=== PATIENT | male | born 1945 | race Caucasian/White ===

== ENCOUNTER 2016-10-16 08:07 | Observation (INO) | payer MEDICARE, OTHER ==
--- NOTE | ~2016-10-16 | OP ---
Record Of Operation [facility] [address] [place] [address] NAME: NKECHI MCKAY : 43 STATUS : DIS Aurelio PAT#: [id number] AGE: 71 ADM/REG DATE : 10/16/16 MR#: [id number] REPORT SERV DATE: 10/18/16 DICTATED BY: RAFA GALEANO DATE: 10/18/16 REPORT STATUS : Draft TRANSCRIBED BY: MODL DATE: 10/18/16 DATE OF PROCEDURE: 10/16/2016 ADDENDUM: Intravenous moderate sedation was used. BN/MODL Rafa Galeano M.D. / [id number] CC: Rosalina Rose M.D.
--- NOTE | ~2016-10-16 | OP ---
Record Of Operation [facility] [address] [place]. [address] NAME: NKECHI VEGA : 43 STATUS : REG REF PAT#: [id number] AGE: 71 ADM/REG DATE : 10/16/16 MR#: [id number] REPORT SERV DATE: 10/16/16 DICTATED BY: RAFA GALEANO DATE: 10/16/16 REPORT STATUS : Draft TRANSCRIBED BY: MODL DATE: 10/16/16 DATE OF PROCEDURE: 10/16/2016 PRIMARY PRODUCER: Rafa Galeano M.D. PROCEDURE PERFORMED: Bilateral renal angiography, angioplasty of the left renal artery with a 6 mm balloon. JUDICIAL ASSISTANT: Rafa Galeano M.D. 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 TECHNIQUE: After informed consent was obtained from Mr. Vega, he was brought to the cardiac catheterization laboratory on the morning of 10/16/2006, in the fasting state. The time-out was performed and correct patient and operative plan were confirmed. The right coronary area was prepped and draped in the usual sterile fashion. Local anesthesia was accomplished using 1% lidocaine. Using modified Seldinger technique and a micropuncture set, a micro sheath was placed in the right femoral artery. Femoral angiogram was performed, which demonstrated good stick in the common femoral artery but heavy calcification and disease just below the access site, thought not suitable for closure. Next, a 5-Chilean sheath was exchanged and a 5-Chilean size 2 catheter was used and bilateral selective renal angiography was performed. At that time, I decided to perform angioplasty of the left renal artery. There was a gradient of approximately 15 mmHg across the origin of the left renal artery stent. The lesion was wired using an exchange Paulino guidewire and the catheter and sheath were withdrawn from the body. A 6-Chilean Garry 2 sheath was then placed in the origin of the left renal artery. The sheath was double flushed and left in place. The patient was heparinized to an ACT of greater than 200. Next, a 6 mm x 20 mm Powerflex balloon was brought to lesion site and inflation was performed to 4 minutes at 12 atmospheres with complete balloon expansion. Followup angiography confirmed good angiographic result. There was no evidence of dissection or distal embolization. The guidewire was removed and final angiogram was performed, which demonstrated good angiographic result. The guiding catheter was then disengaged and removed from body over a guidewire and exchanged for a standard 6-Chilean sheath, which was double flushed and left in place. The patient tolerated the procedure well without apparent complication. He was then returned to his room in good condition for access management. RECOMMENDATIONS: 1. For aspirin and Plavix for least one month and aspirin indefinitely. 2. Risk factor modification. 3. Ultrasound followup. Record Of Operation [address] [place]. [address] NAME: NKECHI VEGA : 43 STATUS : REG REF PAT#: [id number] AGE: 71 ADM/REG DATE : 10/16/16 MR#: [id number] REPORT SERV DATE: 10/16/16 DICTATED BY: RAFA GALEANO DATE: 10/16/16 REPORT STATUS : Draft TRANSCRIBED BY: ANDERS DATE: 10/16/16 RESULTS: The left renal artery is widely patent with a patent stent site in its proximal portion. There is approximately 50% smooth proximal in-stent restenosis. There is a gradient across the origin of the left renal artery by approximately 15 mmHg by pullback using the 5-Chilean catheter. There is good washout of the left kidney. There is heavy calcification of the abdominal aorta and both renal origins. The right renal artery is widely patent with a widely patent stent site and no significant residual stenosis. There is good washout of the right kidney. ACCESS: 6-Chilean RFA 6-Chilean Garry 2 sheath. ESTIMATED BLOOD LOSS: Less than 25 mL. FLUOROSCOPY TIME: 7.8 minutes, MILLIGRAY: 1352. CONTRAST: 100 mL. Nonionic. RESULTS: 1. 50% in-stent restenosis of the left renal artery with approximately 15 mmHg pressure gradient during pullback. 2. Widely patent stent site right renal artery with no significant residual stenosis. 3. Successful angioplasty, plain old balloon angioplasty of the left renal artery from 50% pre to 0% post, and no significant pressure gradient by pullback using the guide sheath at the conclusion of the procedure. RECOMMENDATIONS: 1. Aspirin and Plavix for least one month and aspirin indefinitely. 2. Risk factor modification. 3. Ultrasound followup. BN/MODL Rafa Galeano M.D. / [id number] CC: Rosalina Rose M.D.
[~2016-10-16 08:07] MED LIST: ALTA2.5 PO; APRES25 PO; APRES50 PO; ASAB PO; CLARIT10 PO; COREG25 PO; COREG3 PO; COREG6 PO; FISH OIL1200 MG PO; FISH-EPA1000 MG PO; FLOMAX4 PO; GLUCPH PO; HALF81 PO; IMDUR30 PO; IMDUR60 PO; LIPITOR20 PO; LORTAB 5 PO; NEUR100 PO; NITROQUICK0.4 MG SL; NORCO1 TA1 PO; NORV5 PO; NTG150 SL; PLAVIX PO; SLO-NIACIN250 MG PO; SOMATAB PO; ULTRAM50 PO; Z-PAK PO; ZESTRIL5 MG PO; ZETIA PO; ZYRTEC ALLGY10 MG PO; [UNRECOGNIZED DRUG - REMARK] PO
[2016-10-16 08:57] LABS: BASOPHILS 0.2 %; BASOPHILS ABSOLUTE 0.03 10/3/uL (0.0-0.16); EOSINOPHILS 2.7 %; EOSINOPHILS ABSOLUTE 0.34 10/3/uL (0.0-0.53); HEMATOCRIT 39.3 % (40.0-51.0); HEMOGLOBIN 13.5 g/dL (13.6-17.8); IMMATURE GRANULOCYTES 0.2 %; IMMATURE GRANULOCYTES ABSOLUTE 0.03 10/3/uL (0.0-0.11); LYMPHOCYTES 34.9 %; LYMPHOCYTES ABSOLUTE 4.45 10/3/uL (0.67-4.30); MEAN CORPUS HGB CONC 34.4 g/dL (32.0-36.0); MEAN CORPUSCULAR HEMOGLOB 33.8 pg (26.0-34.0); MEAN CORPUSCULAR VOLUME 98.5 fL (80-100); MEAN PLATELET VOLUME 9.9 fL (9.2-13.0); MONOCYTES 8.9 %; MONOCYTES ABSOLUTE 1.14 10/3/uL (0.21-1.20); NEUTROPHILS 53.1 %; NEUTROPHILS ABSOLUTE 6.75 10/3/uL (2.02-8.40); PLATELET COUNT 213 10/3/uL (150-400); RED CELL COUNT 3.99 10/6/uL (4.7-6.1); WHITE BLOOD CELLS 12.7 10/3/uL (4.5-10.5)
[2016-10-16 08:59] LABS: MANUAL DIFF NO %
[2016-10-16] MEDS ORDERED: COREG12 PO (09:11)
[2016-10-16 09:12] LABS: ALBUMIN 3.8 G/DL (3.5-5.0); BUN (BLOOD UREA NITROGEN) 15 MG/DL (6-23); CALCIUM, SERUM 9.3 MG/DL (8.5-10.4); CHLORIDE, SERUM 107 MMOL/L (96-112); CO2 (CARBON DIOXIDE) 27 MMOL/L (24-34); CREATININE 1.13 MG/DL (0.70-1.30); GFR AFRICAN AMERICAN 75 ML/MIN (>=60); GFR NON AFRICAN AMERICAN 65 ML/MIN (>=60); GLUCOSE, SERUM 120 MG/DL (60-99); POTASSIUM, SERUM 4.6 MMOL/L (3.5-5.3); SGOT(AST) 20 U/L (5-40); SGPT(ALT) 31 U/L (5-65); SODIUM, SERUM 140 MMOL/L (135-148); TOTAL BILIRUBIN 0.4 MG/DL (0-1.2); TOTAL PROTEIN 7.9 G/DL (6.0-8.5)
[2016-10-16] MEDS ORDERED: AMARYL1 MG PO (09:12)
[2016-10-16 09:13] LABS: A/G RATIO 0.9 (0.7-1.9); ALKALINE PHOSPHATASE 82 U/L (45-117); GLOBULIN 4.1 G/DL (2.5-4.1)
[2016-10-17 04:28] LABS: BUN (BLOOD UREA NITROGEN) 14 MG/DL (6-23); CALCIUM, SERUM 9.1 MG/DL (8.5-10.4); CHLORIDE, SERUM 108 MMOL/L (96-112); CO2 (CARBON DIOXIDE) 24 MMOL/L (24-34); CREATININE 0.94 MG/DL (0.70-1.30); GFR AFRICAN AMERICAN 94 ML/MIN (>=60); GFR NON AFRICAN AMERICAN 81 ML/MIN (>=60); GLUCOSE, SERUM 110 MG/DL (60-99); POTASSIUM, SERUM 4.5 MMOL/L (3.5-5.3); SODIUM, SERUM 141 MMOL/L (135-148)
[2016-10-17 04:47] LABS: ASCORBIC ACID (UR NOT ORDER) NEG (NEG); BILIRUBIN, URINE NEGATIVE (NEG); KETONE, URINE NEGATIVE (NEG); LEUKOCYTE ESTERASE(NOT OR NEG (NEG); WBC (NOT ORDERED) (RFLEX) < 1 (0-5)
== END 2016-10-17 12:20 | disposition home or self-care (01) ==
LOC: CORLMH 08:07 → SSU1 08:18
PROVIDERS: Internal Medicine Cardiovascular Disease
PROC: B31TYZZ Fluoroscopy of Left Pulmonary Artery using Other Contrast (ICD-10-PCS; principal; 2016-10-16)
PROC: B31SYZZ Fluoroscopy of Right Pulmonary Artery using Other Contrast (ICD-10-PCS; 2016-10-16)
PROC: 047Y3ZZ Dilation of Lower Artery, Percutaneous Approach (ICD-10-PCS; 2016-10-16)
DX: I70.1 Atherosclerosis of renal artery (principal); I70.92 Chronic total occlusion of artery of the extremities; I25.10 Atherosclerotic heart disease of native coronary artery without angina pectoris; I44.7 Left bundle-branch block, unspecified; E78.2 Mixed hyperlipidemia; F17.210 Nicotine dependence, cigarettes, uncomplicated; I65.29 Occlusion and stenosis of unspecified carotid artery; Z95.1 Presence of aortocoronary bypass graft; I73.9 Peripheral vascular disease, unspecified
CPT/HCPCS: 36252; 37246; 80048; 80053; 81001; 82962; 85025; 85347; 99152; 99153; A9270-GY; C1725; C1769; C1894; G0378; J2250; J3010; Q9966; Q9967

== ENCOUNTER 2016-10-24 15:37 | Emergency (ER) | payer MEDICARE, OTHER ==
[~2016-10-24 15:37] MED LIST changes: +AMARYL1 MG PO; +COREG12 PO
[2016-10-24 18:24] LABS: BASOPHILS 0.4 %; BASOPHILS ABSOLUTE 0.04 10/3/uL (0.0-0.16); EOSINOPHILS 3.8 %; EOSINOPHILS ABSOLUTE 0.43 10/3/uL (0.0-0.53); ER CBC TAT 0 Hrs 00 Mins; HEMATOCRIT 37.7 % (40.0-51.0); HEMOGLOBIN 13.1 g/dL (13.6-17.8); IMMATURE GRANULOCYTES 0.3 %; IMMATURE GRANULOCYTES ABSOLUTE 0.03 10/3/uL (0.0-0.11); LYMPHOCYTES 45.3 %; LYMPHOCYTES ABSOLUTE 5.08 10/3/uL (0.67-4.30); MEAN CORPUS HGB CONC 34.7 g/dL (32.0-36.0); MEAN CORPUSCULAR HEMOGLOB 33.6 pg (26.0-34.0); MEAN CORPUSCULAR VOLUME 96.7 fL (80-100); MEAN PLATELET VOLUME 10.2 fL (9.2-13.0); MONOCYTES 10.1 %; MONOCYTES ABSOLUTE 1.13 10/3/uL (0.21-1.20); NEUTROPHILS 40.1 %; PLATELET COUNT 218 10/3/uL (150-400); RBC DISTRIBUTION WIDTH 13.1 % (12.0-16.0); WHITE BLOOD CELLS 11.2 10/3/uL (4.5-10.5)
[2016-10-24 18:25] LABS: MANUAL DIFF NO %
[2016-10-24 18:27] LABS: INTERNATIONAL NORMAL RATI 1.1 UNITS (-); PARTIAL THROMBO TIME 30.9 SEC (22.5-37.2); PROTIME (NOT ORD) 13.7 SEC (12.0-14.5)
[2016-10-24 18:41] LABS: CALCIUM, SERUM 9.4 MG/DL (8.5-10.4); CHEST PAIN PROFILE TAT 0 Hrs 00 Mins; CHLORIDE, SERUM 107 MMOL/L (96-112); CO2 (CARBON DIOXIDE) 27 MMOL/L (24-34); CREATININE 1.11 MG/DL (0.70-1.30); GFR AFRICAN AMERICAN 76 ML/MIN (>=60); GFR NON AFRICAN AMERICAN 66 ML/MIN (>=60); POTASSIUM, SERUM 4.2 MMOL/L (3.5-5.3); SODIUM, SERUM 139 MMOL/L (135-148); TROPONIN I 0.02 NG/ML (<0.05)
[2016-10-24 18:42] LABS: BUN (BLOOD UREA NITROGEN) 13 MG/DL (6-23); GLUCOSE, SERUM 93 MG/DL (60-99)
[2016-10-24 18:45] LABS: BASOPHILS 1 %; BASOPHILS ABSOLUTE (CALC) 0.11 10/3/uL (0.0-0.16); EOSINOPHILS 7 %; EOSINOPHILS ABSOLUTE (CALC) 0.78 10/3/uL (0.0-0.53); ER DIFF TAT 0 Hrs 21 Mins; LYMPHOCYTES 39 %; LYMPHOCYTES ABSOLUTE (CALC) 4.37 10/3/uL (0.67-4.30); MONOCYTES 9 %; MONOCYTES ABSOLUTE (CALC) 1.01 10/3/uL (0.21-1.20); NEUTROPHILS ABSOLUTE (CALC) 4.93 10/3/uL (2.02-8.40); PLATELET ESTIMATE ADQ (ADEQUATE); RBC MORPHOLOGY NORM (NORMAL); SEGMENTED NEUTROPHIL (0) 44 %; TOTAL NUCLEATED CELLS 100
== END 2016-10-24 19:19 | disposition home or self-care (01) ==
LOC: ER 15:37
PROVIDERS: Physician Assistant
DX: R07.9 Chest pain, unspecified (principal); F17.200 Nicotine dependence, unspecified, uncomplicated; R42 Dizziness and giddiness; I12.9 Hypertensive chronic kidney disease with stage 1 through stage 4 chronic kidney disease, or unspecified chronic kidney disease; N18.9 Chronic kidney disease, unspecified; E11.22 Type 2 diabetes mellitus with diabetic chronic kidney disease; Z95.5 Presence of coronary angioplasty implant and graft; Z88.8 Allergy status to other drugs, medicaments and biological substances; Z79.899 Other long term (current) drug therapy; Z79.82 Long term (current) use of aspirin; Z79.84 Long term (current) use of oral hypoglycemic drugs
CPT/HCPCS: 71010; 80048; 83735; 84484; 85025; 85610; 85730; 93005; 99285